=== PATIENT | male | born 2000 | race Caucasian/White ===

== ENCOUNTER 2025-05-01 13:31 | Outpatient (REF) | payer OTHER, SELFPAY ==
[2025-05-01 17:28] LABS: MANUAL DIFF FLAG NO
[2025-05-01 17:36] LABS: Hematocrit 45.9 % (42.0-52.0); Hemoglobin 16.1 g/dl (14.0-18.0); Imm Gran Abs Auto 0.02 X10*3/uL (0.00-0.03); Imm Gran Pct Auto 0.3 % (0.0-0.4); Lymphocytes Absolute Auto 1.7 X10*3/uL (1.2-4.9); Mean Corpuscular HGB Conc 35.1 g/dl (31.0-36.0); Mean Corpuscular Hemoglobin 30.9 pg (27.0-33.0); Mean Corpuscular Volume 88.1 fL (80.0-98.0); NRBC Abs Auto 0.000 X10*3/uL (0.0-0.012); NRBC Pct Auto 0.0 /100WBC (0.0-0.2); Platelet Count 310 X10*3/uL (160-400); Red Blood Count 5.21 X10*6/uL (4.60-5.80); White Blood Count 6.1 X10*3/uL (4.8-10.8)
[2025-05-01 17:40] LABS: Appearance Urine Clear; Glucose Urine UA Negative (Negative); PH 8.0 (5.0-9.0); Specific Gravity - Urine 1.015 (1.005-1.025)
[2025-05-01 18:15] LABS: Alanine Aminotransferase 40 U/L (0-40); Albumin Level 4.3 g/dL (3.5-5.0); Alkaline Phosphatase 65 U/L (39-117); Anion Gap 11 (12-20); Aspartate Amino Transferase 28 U/L (5-37); Blood Urea Nitrogen 16 mg/dL (9-16); Calcium 8.8 mg/dL (8.4-10.2); Carbon Dioxide 26 mmol/L (22-29); Chloride 108 mmol/L (96-108); Cholesterol 165 mg/dL (<200); Estimated Glomerular Filt Rate > 60; HDL Cholesterol 45 mg/dL (>40); Magnesium 2.2 mg/dL (1.6-2.6); Potassium 4.2 mmol/L (3.3-5.1); Sodium 141 mmol/L (135-145); Total Protein 6.9 g/dL (6.5-8.0); Triglycerides 80 mg/dL (<150)
[2025-05-02 08:44] LABS: HBS Num1 5.85 mIU/mL (0-7.99); HBsAGNum1 0.49 S/CO (0.00-0.99); HIV Num 1 0.06 S/CO (0.00-0.99); Hepatitis B Surface Antigen Negative (Negative); ~HepC Num1 0.09 S/CO (0.00-0.79); ~Hepatitis B Surface Antibody NONREACTIVE (Nonreactive); ~Hepatitis C Antibody Nonreactive (Nonreactive)
[2025-05-06 15:27] LABS: VITAMIN D (1,25 OH) D3 56 pg/mL; Vit D (1,25-Dihydroxy) Total 56 pg/mL (18-72); Vitamin D (1,25 OH) D2 <8 pg/mL
== END 2025-05-01 13:32 | disposition home or self-care (01) ==
LOC: HO.HKASLDS 13:31
PROVIDERS: Visit Provider Student in an Organized Health Care Education/Training Program
DX: Z00.00 Encounter for general adult medical examination without abnormal findings (principal); Z13.31 Encounter for screening for depression; Z13.9 Encounter for screening, unspecified; Z71.9 Counseling, unspecified; R51.9 Headache, unspecified; G89.29 Other chronic pain
CPT/HCPCS: 36415; 80053; 80061; 81003; 82652; 83036; 83735; 84443; 85025; 86706; 86803; 87340; 87389

== ENCOUNTER 2025-05-01 13:31 | Outpatient (AMB) | payer OTHER, SELFPAY ==
--- NOTE | 2025-05-01 13:34 | A.OFFPC_ITS ---
Vital Signs 05/01/25 13:40 Height 6 ft 0.2 in Weight 271 lb 8 oz BMI 36.6 BP 108/74 Blood Pressure Location Lt brachial Position Sitting Respiration 16 Pulse 86 Pulse Source Pulse Oximeter Temp 98.1 F Temp Source Oral Pulse Oximetry (%) 97 Oxygen Delivery Method Room Air Intake Visit Reasons: Constant headaches Intake Note: set pcp and headaches Jewelry Maker Required: No Accompanied by: Self / Same As Patient Allergies No Known Allergies Allergy (Verified 05/01/25 13:34) Tobacco use date assessed: 05/01/25 Dental Screening Dental Screen Date: 05/01/25 Did you have a dental visit in the last 12 months?: Yes Did you have a dental problem in the last 6 months where you did not have access to dental care?: No Was dental information given to patient?: Patient has dentist HPI HPI Comments History of Present Illness Details History of Present Illness The patient is a 24-year-old male presenting with the establishment of care with a new primary care provider. Headaches: - History of headaches, resolved, no cur rent issues reported Health Maintenance - Blood work ordered: CBC, metabolic mccracken el, vitamin D, and B12 screening - Advised against the use of Q-tips for ear cleaning Review of Systems - Neurological: Denies current headaches - General: Denies acute complaints, repo rts good sleep, appetite, and bowel movements 10-point ROS reviewed and negative excep t as noted in HPI Allergies Medications Medication History Current Substance Use - Alcohol: Consumes occasionally, curren tly taking a break Substance Use History - Alcohol: Consumes occasionally, curren tly taking a break - Tobacco: Denies smoking Past Medical History - History of headaches, resolved Past Surgical History Family History Social History - Employment: Works in [employer] ent - Relationship: Has a girlfriend, cohabi tating for four years - Exercise: Enjoys outdoor activities lynn ch as camping and hiking Physical Exam General: No apparent distress. Alert and oriented x 3. Head: Normocephalic, atraumatic Eyes: Pupils equal, round, and reactive to light. A little ear wax, but ear wax is good. Extraocular movements intact Throat: O. Stick your tongue out, say ah. Ah. ropharynx clear. Mucus membranes moist Neck: Supple. No goiters or bumps. eft anterior descending artery distention. No jugular vein distention. No bruit. Cardiovascular: Regular rate and rhythm. Normal S1 and S2. No murmurs, rubs, or gallops Lungs: Clear to auscultation bilaterally. Breath sounds equal bilaterally. No rales, ronchi, or wheezes. Abdomen: Non-tender. Non-distended. Bowel sounds auscultated. No abdominal pain. hepatosplenomegaly. No mass/rebound/guarding Extremities: No c lubbing, cyanosis, and edema. 2+ pulses Neuro: Central nerves II-XII grossly intact. Motor/sensory intact. Reflexes 2. Gait normal Skin: Warm, dry, and intact. No rash. Discussion Notes During the visit, I discussed the importance of establishing care and the process of conducting a comprehensive physical examination. We talked about ordering routine blood work, including CBC, metabolic panel, vitamin D, and B12 screening. I advised against the use of Q-tips for ear cleaning and reassured the patient about insurance coverage for screening tests. Follow-up was recommended in one to two weeks to review results and discuss further management. Plan 1. Headache, unspecified R51.9 - No current treatment required as heada ches have resolved 2. Encounter for general adult medical e xamination without abnormal findings Z00.00 - Comprehensive physical examination con ducted - Blood work ordered: CBC, metabolic mccracken el, vitamin D, and B12 screening - Advised against the use of Q-tips for ear cleaning Patient Instructions - Schedule a follow-up appointment in on e to two weeks to review blood work results. - Avoid using Q-tips for ear cleaning; u se water and a washcloth instead. PFSH Medical History H/O migraine Surgical History H/O removal of cyst H/O colonoscopy Family History Father Diverticulitis Mother No problems noted. Social History (Updated 05/01/25 @ 13:35 by Annel Thibodeaux MA) Housing: Apartment Alcohol intake: current Alcohol intake frequency: a few times a week Patient Tobacco Use Status: Never used Tobacco Substance Use Type: Marijuana service: No Current occupational status: employed Cognitive needs: No Hearing needs: No Vision needs: Yes (reading glasses) Questionnaire PHQ-9 Over the last 2 weeks, how often have you been bothered by any of the following problems? 1. Little interest or pleasure in doing things: more than half the days 2. Feeling down, depressed, or hopeless: not at all 3. Trouble falling or staying asleep, or sleeping too much: not at all 4. Feeling tired or having little energy: not at all 5. Poor appetite or overeating: not at all 6. Feeling bad about yourself - or that you are a failure or have let yourself or your family down: not at all 7. Trouble concentrating on things, such as reading the newspaper or watching television: not at all 8. Moving or speaking so slowly that other people could have noticed. Or the opposite - being so fidgety or restless that you have been moving around a lot more than usual: not at all 9. Thoughts that you would be better off or of hurting yourself in some way: not at all Total score: 2 Depression Screening Interpretation: Negative Depression Screening Done: Yes Source: Developed by Drs. Amrik Mendes, Marina Abdi, Patrick Pittman and colleagues, with an educational sarahy from [employer]. Thrive Questionnaire Date Thrive assessed: 05/01/25 I am a: Patient What is your living situation today?: I have a steady place to live Within the past 12 months, did the food you bought not last and you didn't have the money to get more?: Never true Within the past 12 months, did you worry whether your food would run out before you got money to buy more?: Never true Do you have trouble paying for medicines?: No Do you have trouble getting transportation to medical appointments?: No Do you have trouble paying your heating and electricity bill?: No Do you have trouble taking care of your child, family member or friend?: No Are you currently unemployed and looking for a job?: No Are you interested in more education?: Yes Please select the resources that you would like help with: None Currently or been in a relationship where the following occur: No concerns reported THRIVE Score: 0 AUDIT C Alcohol Use Questionnaire (AUDIT-C) 1. How often do you have a drink containing alcohol?: 2-3 times a week 2. How many drinks containing alcohol do you have on a typical day when you are drinking?: 5 or 6 3. How often do you have six or more drinks on one occasion?: Weekly Total Score: 8 SHELBY-7 AMB Questionnaire SHELBY-7 Date SHELBY - 7 assessed: 05/01/25 Feeling nervous, anxious, or on edge: 0 = Not at all Not being able to stop or control worryin = Not at all Worrying too much about different things: 0 = Not at all Trouble relaxin = Not at all Being so restless that it is hard to sit still: 0 = Not at all Becoming easily annoyed or irritable: 1 = Several days Feeling afraid as if something awful might happen: 0 = Not at all Total SHELBY-7 score (0-4 normal; 5-9 mild; 10-14 moderate; 15-21 severe): 1 Source: Developed by Drs. Amrik Mendes, Marina Abdi, Patrick Pittman and colleagues, with an educational sarahy from [employer]. Physical exam (Primary Care) Tobacco/Smoking Status: Tobacco use Status Patient Tobacco Use Status Never used Tobacco 05/01/25 13:35 Depression Screening Interpretation: Negative Currently or been in a relationship where the following occur: No concerns reported Coding Level of Care Code New Pt Level 3 (34989) Diagnoses Encounter to establish care with new provider Z. Routine lab draw Z. Hypertension screen Z13.6 Screening for diabetes mellitus Z13.1 Screening for lipoid disorders Z13.220 Screening for HIV (human immunodeficiency virus) Z11.4 Screening for depression Z13.31 Counseling, unspecified Z71.9 Chronic headaches R51.9; G89.29 Headache type: unspecified Encounter for screening, unspecified Z13.9 Assessment & Plan Assessment & Plan (1) Encounter to establish care with new provider: Code(s): Z76.89 - Persons encountering health services in other specified circumstances (2) Routine lab draw: Code(s): Z.89 - Encounter for other specified special examinations (3) Hypertension screen: Code(s): Z13.6 - Encounter for screening for cardiovascular disorders (4) Screening for diabetes mellitus: Code(s): Z13.1 - Encounter for screening for diabetes mellitus (5) Screening for lipoid disorders: Code(s): Z13.220 - Encounter for screening for lipoid disorders (6) Screening for HIV (human immunodeficiency virus): Code(s): Z11.4 - Encounter for screening for human immunodeficiency virus [HIV] (7) Screening for depression: Code(s): Z13.31 - Encounter for screening for depression (8) Counseling, unspecified: Code(s): Z71.9 - Counseling, unspecified (9) Chronic headaches: Code(s): R51.9 - Headache, unspecified; G89.29 - Other chronic pain Qualifiers: Headache type: unspecified (10) Encounter for screening, unspecified: Code(s): Z13.9 - Encounter for screening, unspecified Plan Orders: Orders Hemoglobin A1c Today - Persons encountering health services in other specified circumstances Hepatitis C Antibody Today - Persons encountering health services in other specified circumstances HIV Ab/Ag Today - Persons encountering health services in other specified circumstances Lipid Panel Today - Persons encountering health services in other specified circumstances Magnesium Today Z. - Persons encountering health services in other specified circumstances TSH reflex Free T4 Today . - Persons encountering health services in other specified circumstances Complete Blood Count Auto Diff Today . - Persons encountering health services in other specified circumstances Comprehensive Met. Panel Today - Persons encountering health services in other specified circumstances Hepatitis B Surface Antibody Today . - Persons encountering health services in other specified circumstances Hepatitis B Surface Antigen Today . - Persons encountering health services in other specified circumstances UA CC w/rflx Micro + Cult Today - Persons encountering health services in other specified circumstances Vitamin D 1,25 dihydroxy Today . - Persons encountering health services in other specified circumstances
[2025-05-01 13:40] VITALS: BP 108/74; PULSE 86; RESP 16; TEMP 36.7; O2SAT 97; BMI 36.6
== END 2025-05-01 14:01 | disposition home or self-care (01) ==
LOC: HO.HMCFMS 13:32
PROVIDERS: PCP Student in an Organized Health Care Education/Training Program; Visit Provider Student in an Organized Health Care Education/Training Program
DX: R51.9 Headache, unspecified (principal); G89.29 Other chronic pain

== ENCOUNTER 2025-05-12 15:15 | Outpatient (AMB) | payer OTHER, SELFPAY ==
--- NOTE | 2025-05-12 15:15 | MHC.PC.OV ---
Vital Signs 05/12/25 15:22 Height 6 ft 0.2 in Weight 275 lb BMI 37.1 BP 125/81 Blood Pressure Location Lt brachial Position Sitting Respiration 16 Pulse 81 Pulse Source Pulse Oximeter Temp 98.4 F Temp Source Oral Pulse Oximetry (%) 96 Oxygen Delivery Method Room Air Intake Visit Reasons: follow up labs Intake Note: set pcp and headaches Supervisor Contact And Service Clerks Required: No Accompanied by: Self / Same As Patient Allergies No Known Allergies Allergy (Verified 05/12/25 15:15) Tobacco use date assessed: 05/01/25 Dental Screening Dental Screen Date: 05/01/25 Did you have a dental visit in the last 12 months?: Yes Did you have a dental problem in the last 6 months where you did not have access to dental care?: No Was dental information given to patient?: Patient has dentist HPI HPI Comments History of Present Illness Details History of Present Illness The patient is a 24-year-old male presenting for laboratory results review and preventative care discussion. Elevated LDL cholesterol: - The patient's LDL cholesterol is slightly elevated at 104 mg/dL, which is above the recommended level of below 100 mg/dL. - Despite this, the overall laboratory results were favorable, with normal complete blood count and chemistry panel results. Preventative care: Hepatitis B vaccination: - The patient tested negative for Hepatitis B and was advised to start the vaccination series once available. Review of Systems 10-point ROS reviewed and negative except as noted in HPI Past Medical History Health Maintenance - Hepatitis B vaccination recommended once available Physical Exam General: Well-appearing, in no acute distress. Vital signs: Within normal limits. HEENT: Normocephalic, atraumatic. PERRLA, EOMI. Conjunctiva clear, sclera anicteric. Oropharynx clear, mucous membranes moist. TMs intact bilaterally. Neck: Supple, no lymphadenopathy, no thyromegaly, no JVD or carotid bruits. Cardiovascular: RRR, normal S1/S2, no murmurs, rubs, or gallops. Peripheral pulses 2+ and symmetric. No edema. Respiratory: Lungs clear to auscultation bilaterally, no wheezes, rales, or rhonchi. Normal effort. Abdomen: Soft, non-tender, non-distended. Normoactive bowel sounds. No hepatosplenomegaly, no masses. MSK: Full range of motion, no joint swelling or deformity. Normal gait. Skin: Warm, dry, intact. No rashes, lesions, or pallor. Neuro: Alert and oriented x3. Cranial nerves II-XII intact. Strength 5/5 throughout. Sensation intact. Reflexes 2+ symmetric. Normal coordination and gait. Psych: Appropriate mood and affect. Normal judgment and insight. Plan 1. encounter for lab results 2. Other specified health status Z78.9 3. Elevated Ldl Cholesterol - The patient was informed about the slightly elevated LDL cholesterol level and reassured due to overall favorable lab results. 4. Preventative Care: Hepatitis B Vaccination - The patient was advised to start the Hepatitis B vaccination series once it becomes available at the clinic. Discussion Notes I discussed with the patient that his laboratory results were generally favorable, with only a slight elevation in LDL cholesterol, which is not concerning at this time. I recommended starting the Hepatitis B vaccination series once available, and assured him that we would notify him when the vaccines are in stock. Patient Instructions - Monitor cholesterol levels and maintain a healthy diet. - Await notification for Hepatitis B vaccination availability and start the series when possible. [facility] Medical History H/O migraine Surgical History H/O removal of cyst H/O colonoscopy Family History Father Diverticulitis Mother No problems noted. Social History Housing: Apartment Alcohol intake: current Alcohol intake frequency: a few times a week Patient Tobacco Use Status: Never used Tobacco Substance Use Type: Marijuana service: No Current occupational status: employed Cognitive needs: No Hearing needs: No Vision needs: Yes (reading glasses) Questionnaire PHQ-9 Over the last 2 weeks, how often have you been bothered by any of the following problems? 1. Little interest or pleasure in doing things: more than half the days 2. Feeling down, depressed, or hopeless: not at all 3. Trouble falling or staying asleep, or sleeping too much: not at all 4. Feeling tired or having little energy: not at all 5. Poor appetite or overeating: not at all 6. Feeling bad about yourself - or that you are a failure or have let yourself or your family down: not at all 7. Trouble concentrating on things, such as reading the newspaper or watching television: not at all 8. Moving or speaking so slowly that other people could have noticed. Or the opposite - being so fidgety or restless that you have been moving around a lot more than usual: not at all 9. Thoughts that you would be better off or of hurting yourself in some way: not at all Total score: 2 Depression Screening Interpretation: Negative Depression Screening Done: Yes Source: Developed by Drs. Amrik Mendes, Marina Abdi, Patrick Pittman and colleagues, with an educational sarahy from [employer]. Thrive Questionnaire Date Thrive assessed: 05/01/25 I am a: Patient What is your living situation today?: I have a steady place to live Within the past 12 months, did the food you bought not last and you didn't have the money to get more?: Never true Within the past 12 months, did you worry whether your food would run out before you got money to buy more?: Never true Do you have trouble paying for medicines?: No Do you have trouble getting transportation to medical appointments?: No Do you have trouble paying your heating and electricity bill?: No Do you have trouble taking care of your child, family member or friend?: No Are you currently unemployed and looking for a job?: No Are you interested in more education?: Yes Please select the resources that you would like help with: None Currently or been in a relationship where the following occur: No concerns reported THRIVE Score: 0 AUDIT C Alcohol Use Questionnaire (AUDIT-C) 1. How often do you have a drink containing alcohol?: 2-3 times a week 2. How many drinks containing alcohol do you have on a typical day when you are drinking?: 5 or 6 3. How often do you have six or more drinks on one occasion?: Weekly Total Score: 8 SHELBY-7 AMB Questionnaire SHELBY-7 Date SHELBY - 7 assessed: 05/01/25 Feeling nervous, anxious, or on edge: 0 = Not at all Not being able to stop or control worryin = Not at all Worrying too much about different things: 0 = Not at all Trouble relaxin = Not at all Being so restless that it is hard to sit still: 0 = Not at all Becoming easily annoyed or irritable: 1 = Several days Feeling afraid as if something awful might happen: 0 = Not at all Total SHELBY-7 score (0-4 normal; 5-9 mild; 10-14 moderate; 15-21 severe): 1 Source: Developed by Drs. Amrik Mendes, Marina Abdi, Patrick Pittman and colleagues, with an educational sarahy from [employer]. Physical exam (Primary Care) Vital Signs: Last Vital Signs Temp 98.4 F 05/12/25 15:22 Pulse 81 05/12/25 15:22 Resp 16 05/12/25 15:22 BP 125/81 05/12/25 15:22 Pulse Ox 96 05/12/25 15:22 Oxygen Delivery Method Room Air 05/12/25 15:22 BMI result Body Mass Index 37.1 Tobacco/Smoking Status: Tobacco use Status Tobacco use date assessed 05/01/25 05/12/25 15:19 Patient Tobacco Use Status Never used Tobacco 05/12/25 15:19 PHQ-9: PHQ-9 Score PHQ-9: Total score 2 05/12/25 15:19 Depression Screening Interpretation: Negative Thrive Assessment: Date of Thrive Assessment Date Thrive assessed 05/01/25 05/12/25 15:19 Currently or been in a relationship where the following occur: No concerns reported Coding Level of Care Code Est Pt Level 3 (62702) Diagnoses Encounter to discuss test results Z71.2 Elevated LDL cholesterol level E78.00 Assessment & Plan Assessment & Plan (1) Encounter to discuss test results: Code(s): Z71.2 - Person consulting for explanation of examination or test findings (2) Elevated LDL cholesterol level: Code(s): E78.00 - Pure hypercholesterolemia, unspecified Plan
[2025-05-12 15:22] VITALS: BP 125/81; PULSE 81; RESP 16; TEMP 36.9; O2SAT 96; BMI 37.1
== END 2025-05-12 15:36 | disposition home or self-care (01) ==
LOC: HO.HMCFMS 15:15
PROVIDERS: PCP Student in an Organized Health Care Education/Training Program; Visit Provider Student in an Organized Health Care Education/Training Program
DX: E78.00 Pure hypercholesterolemia, unspecified (principal); Z71.2 Person consulting for explanation of examination or test findings